=== PATIENT | female | born 1960 | race Caucasian/White ===

== ENCOUNTER 2019-04-02 11:30 | Emergency (ER) | payer MEDICAID, SELFPAY ==
[2019-04-02 11:33] VITALS: BP 143/78; PULSE 77; RESP 16; TEMP 36.9; O2SAT 93; BMI 24.5
--- NOTE | 2019-04-02 11:41 | ED_ITS ---
Entered by Giovany Dhillon, acting as scribe for Eran Rapp DO HPI - Chest Pain General: Chief Complaint: Chest Pain Stated Complaint: RAPID HEART RATE Time Seen by Provider: 04/02/19 11:34 History of Present Illness: HPI narrative: 59 yo female presents with chest pain. Pt states that she is supposed to take her heart rate before she takes her heart medication. Pt states that her pain is now gone. EMS found the patient to be in SVT she has had this in the past as well she was given a single dose of adenosine converted to a normal sinus rhythm she is not having any further symptoms at this time. She has prescription for verapamil and atenolol she is has 180 mg tablets of verapamil will delay been taking 90 and only be taking a half of a 25 mg of atenolol but she checks her pulse in the morning and if it is in the 70s she does not take it. She is worried she will get too bradycardic. She did see her high school professional earlier this week and they advised her to continue to do that since she is not had any breakthrough episodes for some time now. MD complaint: chest pain Onset (ago): day(s) Timing of current episode: constant Prior episodes: Yes Onset: during rest Pain radiation: none Severity: moderate Quality: tightness Exacerbating factors: nothing Associated symptoms: Deny abdominal pain, dyspnea, fever(s), nausea, pal pitations, syncope or vomiting Treatment prior to arrival: aspirin Review of Systems Const: Denies: fever, chills, body aches, fatigue, malaise or night sweats Eyes: Denies: change in vision or blurry vision ENMT: Denies: throat pain, oral sores/lesions, dental pain, nasal discharge or nasal congestion Card: Denies: chest pain, palpitations, irregular heart rhythm, edema, syncope, shortness of breath on exertion, shortness of breath when lying down or leg pain with exertion Resp: Denies: shortness of breath, productive cough, non-productive cough or wheezing GI: Denies: abdominal pain, nausea, vomiting, vomiting blood, coffee grounds in vomit, difficulty swallowing, heartburn/indigestion, diarrhea, constipation, cramping, blood in stool or black tarry stool : Denies: flank pain, painful urination, urinary frequency, urinary urgency, urinary incontinence or blood in urine Musc: Denies: neck pain, back pain, extremity pain, extremity swelling, joint pain or joint swelling Skin/Breast: Denies: rash, itching or redness Neuro: Denies: headache, numbness in extremities, weakness in extremities, changes in sensation, lack of coordination, difficulty walking, frequent falls, dizziness, vertigo or confusion Psych: Denies: anxiety, depression, loss of interest, visual hallucinations, auditory hallucinations, suicidal ideation or homicidal ideation Endo: Denies: excessive urination, excessive thirst, tired all the time or cold intolerance Indra/Lymph: Denies: easy bruising, easy bleeding, petechiae, enlarged lymph nodes or tender lymph nodes PFSH ED PFSH: Statuses (acute, chronic, etc) shown below reflect problem list status as previously entered and may not be historically accurate Medical History Asthma (Acute) Chest pain (Acute) Dyslipidemia (Acute) Dysphagia (Acute) GERD (gastroesophageal reflux disease) (Acute) H. pylori infection (Acute) Hypertension (Acute) Stenosis, cervical spine (Acute) SVT (supraventricular tachycardia) (Acute) Family History Mother Hypertension Other Alzheimer disease CAD (coronary artery disease) Cancer Diabetes Heart disease Stroke Social History Smoking and tobacco status: current every day smoker Alcohol intake: former Physical Exam Const: COMMON NORMALS: average body habitus, oriented x3 and alert GENERAL APPEARANCE: cooperative, comfortable, well kempt and well developed NUTRITIONAL APPEARANCE: not obese ORIENTATION/CONSCIOUSNESS: Yes awake, Yes oriented to person and Yes oriented to place HENMT: COMMON NORMALS: normocephalic, head/scalp atraumatic, EAC's normal, TM's normal bilaterally, external nose normal, moist oral mucous membranes and oropharynx normal HEAD & SCALP: normocephalic and atraumatic NOSE: external nose normal EXTERNAL AUDITORY CANAL: EAC's normal TYMPANIC MEMBRANE: TM's normal bilaterally MOUTH: oral and palatal mucosa normal, lip normal and tongue normal THROAT: posterior oropharynx normal and tonsils normal Eye: COMMON NORMALS: PERRL, EOMs intact bilaterally, conjunctivae normal and no scleral icterus CONJUNCTIVA: Yes conjunctivae normal PUPIL: Yes PERRL Neck/C-Spine: COMMON NORMALS: full ROM, no lymphadenopathy, supple, no meningeal signs and thyroid normal THYROID: thyroid normal and asymmetrical Lymph: LYMPHATIC: no lymphadenopathy noted Resp: COMMON NORMALS: normal respiratory effort, no retractions, no use of accessory muscles and clear to auscultation bilaterally AUSCULTATION: clear to auscultation bilaterally Cardio: COMMON NORMALS: regular rate and regular rhythm RATE: regular rate RHYTHM: regular rhythm HEART SOUNDS: no murmurs GI: COMMON NORMALS: normal to inspection, nondistended, normoactive bowel sounds, soft to palpation and no hepatosplenomegaly PALPATION: Yes soft and Yes no hepatosplenomegaly : COMMON NORMALS: Yes no CVA tenderness BLADDER/KIDNEY EXAM: Yes no CVA tenderness Back/Pelvis: COMMON NORMALS: no CVA tenderness LUMBAR SPINE/LOWER BACK: Yes normal to inspection Extremity: COMMON NORMALS: no clubbing, cyanosis or edema, no calf tenderness and no pedal edema Neuro: COMMON NORMALS: oriented x3 SENSORIUM/ORIENTATION: Yes alert, Yes oriented to person and Yes oriented to place MENINGEAL SIGNS: Yes no meningeal signs Psych: APPEARANCE: Yes well kempt Skin: COMMON NORMALS: no rashes or lesions noted and skin turgor normal GENERAL SKIN EXAM: no rashes or lesions noted and turgor normal Course ED course: Patient asymptomatic upon arrival laboratory tests unremarkable. Working to increase her verapamil 120 mg once a day have her stop taking the 180s, not take a full tablet or half tablet. Instead take the full 120 mg once daily of verapamil. We will have her hold the atenolol follow-up with the doctor next week. She has recurrent symptoms return. Vital Signs: Vital signs: Vital Signs Temperature 98.5 F 04/02/19 11:33 Pulse Rate 70 04/02/19 13:20 Respiratory Rate 15 04/02/19 13:20 Blood Pressure 110/93 04/02/19 13:20 Pulse Oximetry 96 04/02/19 13:20 MDM - Chest Pain Lab Data: Labs: Lab Results 04/02/19 04/02/19 Range/Units 12:07 12:07 WBC 7.4 (4.0-10.0) 10^3/ uL RBC 4.58 (4.1-5.3) 10^6/u L Hgb 14.6 (11.5-15.3) g/dL Hct 42.5 (37.0-47.0) % MCV 92.8 (81-99) fL MCH 31.9 (28.0-34.0) pg MCHC 34.4 (30.0-36.0) g/dL RDW 11.6 L (12.1-15.1) % Plt Count 311 (130-400) 10^3/c mm MPV 9.4 (7.4-10.4) fL Neut % (Auto) 62.2 % Lymph % (Auto) 29.4 % [place] % (Auto) 7.5 % Eos % (Auto) 0.5 % Baso % (Auto) 0.3 % Neut # (Auto) 4.6 (1.8-7.7) 10^3/u L Lymph # (Auto) 2.2 (0.8-4.8) 10^3/u L [place] # (Auto) 0.6 (0.2-0.9) 10^3/u L Eos # (Auto) 0.0 (0.0-0.8) 10^3/u L Baso # (Auto) 0.0 (0.0-0.1) 10^3/u L Nucleated RBC % (a uto) 0 % Nucleated RBCs # 0.0 /100WBC Sodium 139 (136-145) mmol/L Potassium 3.5 (3.5-5.1) mmol/L Chloride 100 (98-107) mmol/L Carbon Dioxide 27 (22-29) mmol/L Anion Gap 15.5 (5-19) BUN 8 (6-20) mg/dL Creatinine 0.9 (0.5-0.9) mg/dL GFR Calculation 64.1 L (90-130) mL/min Glucose 103 (74-109) mg/dL Calcium 10.0 (8.5-10.5) mg/dL Total Bilirubin 0.6 (0.15-1.2) mg/dL AST 21 (0-32) U/L ALT 17 (0-33) U/L Alkaline Phosphata se 106 H (35-105) IU/L Total Protein 8.0 (6.6-8.7) g/dL Albumin 5.1 (3.5-5.2) g/dL Globulin 2.9 (1.3-4.6) g/dL Discharge Plan Discharge Patient Disposition: Home, Self-Care Clinical Impression: SVT (supraventricular tachycardia), Hypertension Condition: Stable Prescriptions: New verapamil 120 mg capsule,ext rel. pellets 24 hr 120 mg PO DAILY Qty: 20 RF: 0 Discontinued verapamil 180 mg Tablet Extended Release 180 mg PO DAILY PRN (Reason: Heart) RF: 0 atenolol 25 mg Tablet 12.5 mg PO DAILY RF: 0 No Action aspirin [Aspir-81] 81 mg tablet,delayed release (DR/EC) 81 mg PO DAILY RF: 0 atorvastatin 20 mg tablet 20 mg PO DAILY RF: 0 ipratropium-albuterol 18-103 mcg/actuation aerosol INHALATION RF: 0 omega-3 fatty acids [Fish Oil Concentrate] 1,000 mg capsule 1,000 mg PO DAILY RF: 0 nitroglycerin 0.4 mg tablet, sublingual 0.4 mg SUBLINGUAL Q5M PRNRF: 0 lactobacillus combination no.8 PO RF: 0 pantoprazole 40 mg tablet,delayed release (DR/EC) 40 mg PO BID RF: 0 Amitiza 24 mcg capsule 24 mcg PO BID MDD 2 30 Days Qty: 60 RF: 4 Discharge Orders: Discharge Order (Routine); Ordered 04/02/19 Ordered By: Eran Rapp Referrals: Viridiana Delgadillo MD [Physician] - (follow up on medication changes) Discharge Date/Time: 04/02/19 13:20 Coding Level of Care Code ED Hand I Blocker for Chg Fwd Exam Problem Focused The documentation recorded by the Alejo morrell Kialy, accurately reflects the service I personally performed and the decisions made by Dionte acosta Curtis L, DO
--- NOTE | 2019-04-02 11:44 | ECG_ITS ---
Measurements Intervals [place] Rate: 77 P: 144 [place]: 157 QRS: 99 QRSD: 85 T: 61 QT: 384 QTc: 435 SINUS RHYTHM ARM LEADS REVERSED [INVERTED P AND QRS IN I] ATYPICAL ECG WARNING: DATA QUALITY MAY AFFECT INTERPRETATION Compared to ECG 09/28/2017 07:27:04 Sinus bradycardia no longer present Electronically Signed On 04-02-2019 18:02:13 WOOD LATHER by Dipti Hernandez M.D. [email or web address]
[2019-04-02 12:12] LABS: Basophils % 0.3 %; Eosinophils % 0.5 %; Hematocrit 42.5 % (37.0-47.0); Hemoglobin 14.6 g/dL (11.5-15.3); Lymphocytes # 2.2 10^3/uL (0.8-4.8); Lymphocytes % 29.4 %; Mean Corpuscular HGB Conc 34.4 g/dL (30.0-36.0); Mean Corpuscular Hemoglobin 31.9 pg (28.0-34.0); Mean Corpuscular Volume 92.8 fL (81-99); Mean Platelet Volume 9.4 fL (7.4-10.4); Monocytes # 0.6 10^3/uL (0.2-0.9); Monocytes % 7.5 %; Neutrophils # 4.6 10^3/uL (1.8-7.7); Neutrophils % 62.2 %; Nucleated Red Blood Cells % 0 %; Platelet Count 311 10^3/cmm (130-400); Red Blood Count 4.58 10^6/uL (4.1-5.3); Red Cell Distribution Width 11.6 % (12.1-15.1); White Blood Count 7.4 10^3/uL (4.0-10.0)
[2019-04-02 12:26] LABS: Alanine Aminotransferase 17 U/L (0-33); Albumin Level 5.1 g/dL (3.5-5.2); Alkaline Phosphatase 106 IU/L (35-105); Anion Gap 15.5 (5-19); Aspartate Amino Transferase 21 U/L (0-32); Blood Urea Nitrogen 8 mg/dL (6-20); Carbon Dioxide 27 mmol/L (22-29); Chloride 100 mmol/L (98-107); Globulin 2.9 g/dL (1.3-4.6); Glomerular Filtration Rate 64.1 mL/min (90-130); Glucose 103 mg/dL (74-109); Potassium 3.5 mmol/L (3.5-5.1); Sodium 139 mmol/L (136-145); Total Bilirubin 0.6 mg/dL (0.15-1.2)
[2019-04-02 13:20] VITALS: BP 110/93; PULSE 70; RESP 15; O2SAT 96
--- NOTE | 2019-04-04 16:04 | DCPLANNER ---
hotel general manager had message to schedule a follow up appointment for patient with [facility]. hotel general manager called [facility], spoke with Teresa, a follow up appointment was scheduled for Thursday, April 06, 2019 at 10:[address] Chance. Clinic will notify patient of appointment.
--- NOTE | 2019-04-07 14:19 | DCPLANNER ---
Patient did attend appointment scheduled for 04.06.19 with [facility].
== END 2019-04-02 13:20 | disposition home or self-care (01) ==
PROVIDERS: Emergency Provider Family Medicine; Family Provider Internal Medicine; PCP Internal Medicine
DX: I47.1 Supraventricular tachycardia (principal); I10 Essential (primary) hypertension; Z79.82 Long term (current) use of aspirin; J45.909 Unspecified asthma, uncomplicated; E78.5 Hyperlipidemia, unspecified; F17.210 Nicotine dependence, cigarettes, uncomplicated; K21.9 Gastro-esophageal reflux disease without esophagitis
CPT/HCPCS: 36415; 80053; 85025; 93005; 99282; A9270

== ENCOUNTER → 2019-04-07 13:44 | Outpatient (BNVA) | payer MEDICAID, SELFPAY | PROVIDERS: Family Provider Internal Medicine; PCP Internal Medicine; Visit Provider Otolaryngology | DX: H93.11 Tinnitus, right ear (principal); F17.210 Nicotine dependence, cigarettes, uncomplicated | CPT/HCPCS: 99203; 99214 ==

== ENCOUNTER 2019-04-21 07:04 | Emergency (ER) | payer MEDICAID, SELFPAY ==
[2019-04-21 07:06] VITALS: BP 132/93; PULSE 70; RESP 20; TEMP 36.9; O2SAT 98; BMI 22.8
--- NOTE | 2019-04-21 07:08 | ED_ITS ---
Entered by Giovany Dhillon, acting as scribe for Eran Rapp DO HPI - General Adult General: Chief complaint: Chest Pain Stated complaint: CHEST PALPITATIONS Time Seen by Provider: 04/21/19 07:15 History of Present Illness: HPI narrative: 59 yo female presents with palpations. Pt states that she woke up at 3 am, went to the bathroom and she could feel her heart beating fast. Pt states that she woke up at 4am, took all of her medications and she could feel her heart beating faster. I had seen her recently here in the emergency room at that time she was only taking her verapamil and her atenolol on a as needed basis she was taking half a tablet of 180 mg of Cardizem and taking atenolol only when her pulse was rapid. We had asked her to take 120 mg daily of Cardizem regularly. She tells me she is continue to do that but is still taking the atenolol just on a as needed basis she is not been back to see cardiology yet. MD complaint: palpatations Associated symptoms: Reports palpitations (Intermittent tachycardias); Deny chest pain, dyspnea, malaise, nausea, rash or vomiting Review of Systems Const: Denies: fever, chills, body aches, change in appetite, fatigue or malaise ENMT: Denies: throat pain, ear pain, nasal discharge or nasal congestion Card: Reports: palpitations (Intermittent tachycardias); Denies: chest pain, edema, shortness of breath on exertion or shortness of breath when lying down Resp: Denies: shortness of breath, productive cough or non-productive cough GI: Denies: abdominal pain, nausea, vomiting, vomiting blood, coffee grounds in vomit, diarrhea, constipation, bloating, blood in stool or black tarry stool : Denies: flank pain, difficulty urinating, painful urination, urinary frequency or urinary urgency Skin/Breast: Denies: rash or itching PFS ED PFSH: Medical History Asthma (Acute) Chest pain (Acute) Dyslipidemia (Acute) Dysphagia (Acute) GERD (gastroesophageal reflux disease) (Acute) H. pylori infection (Acute) Hypertension (Acute) Stenosis, cervical spine (Acute) SVT (supraventricular tachycardia) (Acute) Family History Mother Cancer Diabetes Hypertension Brother CAD (coronary artery disease) Alzheimer disease Heart disease Sister Diabetes Cancer Heart disease Other Stroke Social History Smoking and tobacco status: current every day smoker Quit status (tobacco): considering quitting Alcohol intake: former Physical Exam Const: COMMON NORMALS: no apparent distress GENERAL APPEARANCE: cooperative and comfortable ORIENTATION/CONSCIOUSNESS: Yes awake, Yes oriented to person, Yes oriented to place and Yes oriented to time HENMT: COMMON NORMALS: normocephalic, head/scalp atraumatic, hearing grossly normal bilaterally, external ears normal, EAC's normal, TM's normal bilaterally, nasal mucous membranes and turbinates normal, moist oral mucous membranes and oropharynx normal HEAD & SCALP: normocephalic and atraumatic NOSE: nasal mucous membranes and turbinates normal EXTERNAL EAR: Yes external ears normal EXTERNAL AUDITORY CANAL: EAC's normal TYMPANIC MEMBRANE: TM's normal bilaterally Eye: COMMON NORMALS: PERRL, EOMs intact bilaterally, conjunctivae normal and no scleral icterus CONJUNCTIVA: Yes conjunctivae normal PUPIL: Yes PERRL Neck/C-Spine: COMMON NORMALS: full ROM, no lymphadenopathy, supple and no JVD Lymph: LYMPHATIC: no lymphadenopathy noted and no lymphedema noted Resp: COMMON NORMALS: normal respiratory effort, no retractions, no use of accessory muscles and clear to auscultation bilaterally AUSCULTATION: clear to auscultation bilaterally Cardio: COMMON NORMALS: no JVD, regular rate, regular rhythm and no murmurs RATE: regular rate RHYTHM: regular rhythm GI: COMMON NORMALS: soft to palpation and no hepatosplenomegaly AUSCULTATION: Yes normoactive bowel sounds PALPATION: Yes soft, No tender, No guarding and Yes no hepatosplenomegaly Extremity: COMMON NORMALS: normal to inspection, normal capillary refill, no clubbing, cyanosis or edema, no calf tenderness and no pedal edema Neuro: SENSORIUM/ORIENTATION: Yes oriented to person, Yes oriented to place and Yes oriented to time Skin: COMMON NORMALS: no rashes or lesions noted GENERAL SKIN EXAM: no rashes or lesions noted Course ED course: Continue Cardizem regularly over little bit concerned about the PRN use of the beta-mary do not think she is really using it as a rescue med more if her heart rate is above 70 she will take the night before and at times noticed she gets bradycardic through the night. May be better to have her stop the beta-mary and increase the verapamil further. At this time in the emergency room she tells me she has not taken the atenolol for some time her heart rate is in the 60s and her blood pressure is well controlled recommend not making any changes at this point getting a 24-hour Holter and then follow-up with cardiology they can make adjustments as deemed necessary. I did ask her to continue on her 20 mg daily verapamil for now. Vital Signs: Vital signs: Vital Signs Temperature 98.5 F 04/21/19 07:06 Pulse Rate 67 04/21/19 08:04 Respiratory Rate 20 H 04/21/19 08:04 Blood Pressure 132/93 04/21/19 08:04 Pulse Oximetry 97 04/21/19 08:04 [facility] - General Adult Lab Data: Labs: Lab Results 04/21/19 04/21/19 Range/Units 07:24 07:24 WBC 8.8 (4.0-10.0) 10^3/ uL RBC 4.69 (4.1-5.3) 10^6/u L Hgb 14.8 (11.5-15.3) g/dL Hct 43.3 (37.0-47.0) % MCV 92.3 (81-99) fL MCH 31.6 (28.0-34.0) pg MCHC 34.2 (30.0-36.0) g/dL RDW 11.4 L (12.1-15.1) % Plt Count 331 (130-400) 10^3/c mm MPV 9.3 (7.4-10.4) fL Neut % (Auto) 68.9 % Lymph % (Auto) 23.7 % [place] % (Auto) 6.5 % Eos % (Auto) 0.5 % Baso % (Auto) 0.2 % Neut # (Auto) 6.0 (1.8-7.7) 10^3/u L Lymph # (Auto) 2.1 (0.8-4.8) 10^3/u L [place] # (Auto) 0.6 (0.2-0.9) 10^3/u L Eos # (Auto) 0.0 (0.0-0.8) 10^3/u L Baso # (Auto) 0.0 (0.0-0.1) 10^3/u L Nucleated RBC % (a uto) 0 % Nucleated RBCs # 0.0 /100WBC Sodium 138 (136-145) mmol/L Potassium 3.9 (3.5-5.1) mmol/L Chloride 101 (98-107) mmol/L Carbon Dioxide 25 (22-29) mmol/L Anion Gap 15.9 (5-19) BUN 8 (6-20) mg/dL Creatinine 0.9 (0.5-0.9) mg/dL GFR Calculation 64.1 L (90-130) mL/min Glucose 121 H (65-115) mg/dL Calculated Osmolal ity 283 L (285-295) mOsm/k g Calcium 10.1 (8.5-10.5) mg/dL TSH 1.65 (0.27-4.20) uIU/ mL Free T4 1.60 (0.82-1.77) ng/d L Discharge Plan Discharge Patient Disposition: Home, Self-Care Clinical Impression: SVT (supraventricular tachycardia), Hypertension Condition: Stable Prescriptions: No Action aspirin [Aspir-81] 81 mg tablet,delayed release (DR/EC) 81 mg PO DAILY RF: 0 atorvastatin 20 mg tablet 20 mg PO DAILY RF: 0 ipratropium-albuterol 18-103 mcg/actuation aerosol INHALATION RF: 0 omega-3 fatty acids [Fish Oil Concentrate] 1,000 mg capsule 1,000 mg PO DAILY RF: 0 nitroglycerin 0.4 mg tablet, sublingual 0.4 mg SUBLINGUAL Q5M PRNRF: 0 lactobacillus combination no.8 PO RF: 0 pantoprazole 40 mg tablet,delayed release (DR/EC) 40 mg PO DAILY RF: 0 atenolol 25 mg tablet 25 mg PO QDAY PRNRF: 0 Amitiza 24 mcg capsule 24 mcg PO BID MDD 2 30 Days Qty: 60 RF: 4 verapamil 120 mg capsule,ext rel. pellets 24 hr 120 mg PO DAILY Qty: 20 RF: 0 Discharge Orders: Discharge Order (Routine); Ordered 04/21/19 Ordered By: Eran Rapp Referrals: Viridiana Delgadillo MD [Physician] - (Follow-up with Dr. stinson in the next 7 to 10 days) Activity Restrictions/Additional Instructions: Continue all of your current medications with no change in doses until you follow-up with Dr. Delgadillo Discharge Date/Time: 04/21/19 08:06 Coding Level of Care Code ED [employer] Technician for Chg Fwd Exam Problem Focused The documentation recorded by the Alejo morrell Kialy, accurately reflects the service I personally performed and the decisions made by Dionte acosta Curtis L, DO Apr 21, 2019 07:04
--- NOTE | 2019-04-21 07:16 | ECG_ITS ---
Measurements Intervals [place] Rate: 60 P: 71 SD: 155 QRS: 57 QRSD: 79 T: 46 QT: 406 QTc: 406 SINUS RHYTHM WITH SINUS ARRHYTHMIA Compared to ECG 04/02/2019 11:39:20 No significant changes Electronically Signed On 04-21-2019 20:41:16 WIRE FENCE ERECTOR by Dipti Hernandez M.D. [email or web address]
[2019-04-21 07:30] LABS: Basophils % 0.2 %; Eosinophils % 0.5 %; Hematocrit 43.3 % (37.0-47.0); Hemoglobin 14.8 g/dL (11.5-15.3); Lymphocytes # 2.1 10^3/uL (0.8-4.8); Lymphocytes % 23.7 %; Mean Corpuscular HGB Conc 34.2 g/dL (30.0-36.0); Mean Corpuscular Hemoglobin 31.6 pg (28.0-34.0); Mean Corpuscular Volume 92.3 fL (81-99); Mean Platelet Volume 9.3 fL (7.4-10.4); Monocytes # 0.6 10^3/uL (0.2-0.9); Monocytes % 6.5 %; Neutrophils % 68.9 %; Nucleated Red Blood Cells % 0 %; Platelet Count 331 10^3/cmm (130-400); Red Blood Count 4.69 10^6/uL (4.1-5.3); Red Cell Distribution Width 11.4 % (12.1-15.1); White Blood Count 8.8 10^3/uL (4.0-10.0)
[2019-04-21 07:57] LABS: Anion Gap 15.9 (5-19); Blood Urea Nitrogen 8 mg/dL (6-20); Calcium 10.1 mg/dL (8.5-10.5); Carbon Dioxide 25 mmol/L (22-29); Chloride 101 mmol/L (98-107); Glomerular Filtration Rate 64.1 mL/min (90-130); Glucose 121 mg/dL (65-115); Osmolality Calculated 283 mOsm/kg (285-295); Potassium 3.9 mmol/L (3.5-5.1); Sodium 138 mmol/L (136-145); Thyroid Stimulating Hormone 1.65 uIU/mL (0.27-4.20)
[2019-04-21 08:04] VITALS: BP 132/93; PULSE 67; RESP 20; O2SAT 97
--- NOTE | 2019-04-21 09:20 | DCPLANNER ---
alliance manager had order for a 24 hour halter monitor for patient. alliance manager faxed order to [facility]. alliance manager will call for appointment information.
--- NOTE | 2019-04-22 15:44 | DCPLANNER ---
Patient had an appointment scheduled for a [facility] monitor for 20 - patient attended Patient has an appointment scheduled for Thursday, April 25, 2019 at 8:[address] Delgadillo, clinic will call patient with appointment information.
--- NOTE | 2019-05-10 14:47 | DCPLANNER ---
Patient did attend appointment scheduled for 04.25.19 with [facility].
== END 2019-04-21 08:06 | disposition home or self-care (01) ==
PROVIDERS: Emergency Provider Family Medicine; Family Provider Internal Medicine; PCP Internal Medicine
DX: I47.1 Supraventricular tachycardia (principal); I10 Essential (primary) hypertension; E78.5 Hyperlipidemia, unspecified; J45.909 Unspecified asthma, uncomplicated; F17.200 Nicotine dependence, unspecified, uncomplicated
CPT/HCPCS: 36415; 80048; 84439; 84443; 85025; 93005; 99281; 99283

== ENCOUNTER 2019-11-15 12:25 | Outpatient (CLI) | payer MEDICAID, SELFPAY ==
--- NOTE | 2019-11-15 12:31 | CT_ITS ---
WS: [id number] CT NECK WITH CONTRAST HISTORY: LOCALIZED SWELLING, MASS AND LUMP TECHNIQUE: Contiguous 5 mm axial images are performed through the neck with intravenous contrast. Sag ittal and coronal reformats are also submitted. All CT scans at [facility] use at least o ne of these dose optimization techniques: automated exposure control; mA and/or kV adjustment per pat ient size (includes targeted exams where dose is matched to clinical indication); or iterative recons truction. CONTRAST: CONTRAST: Omnipaque 300; 95 mL IV. DLP: 2701.88 mGycm COMPARISON: None available. Marker is placed over the palpable region in the posterior RIGHT neck. There is a benign appearing oc cipital lymph node measuring 3.5 mm. Otherwise normal appearance of the soft tissues and underlying o sseous structures. Nasopharynx, oropharynx, hypopharynx and larynx are unremarkable. No soft tissue masses or abnormal e nhancement. Torus tubarius and fossa of Rosenmuller and parapharyngeal fat are normal. Small benign cervical chain lymph nodes. There is a fatty nodule measuring 2.5 x 1.8 cm inseparable f rom the inferior pole of the LEFT thyroid gland. Hounsfield units are decreased suggesting fatty atte nuation. This conforms to the adjacent space of the upper neck and extends posterior to the clavicle. Parotid and submandibular glands are negative. Advanced degenerative disc disease at C5-6 and C6-7. Visualized portions of the skull base demonstrate no abnormalities. Orbits and globes are within norm al limits. No soft tissue masses. Visualized paranasal sinuses and mastoid air cells are normal. Lung apices are clear. CT/CT neck w con* 00881 IMPRESSION: 1. Benign occipital lymph node corresponds to the palpable abnormality over th e RIGHT upper cervical region. 2. Soft tissue mass with fat attenuation inseparable from the inferior LEFT th yroid. 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 Benign in appearance without enhancement. Recommend follow-up neck CT in 3 months with contrast to exclude change. 3. No adenopathy.
[2019-11-15] MEDS: iohexol 300 mg/mL 100 mL Btl IV (13:00)
== END 2019-11-15 12:26 | disposition home or self-care (01) ==
LOC: RADWPI 12:27
PROVIDERS: Family Provider Internal Medicine; PCP Internal Medicine; Visit Provider Nurse Practitioner
DX: R22.1 Localized swelling, mass and lump, neck (principal)
CPT/HCPCS: 70491; 99213; Q9967

== ENCOUNTER → 2020-01-13 11:52 | Outpatient (BNVA) | payer MEDICAID, SELFPAY | PROVIDERS: Family Provider Internal Medicine; PCP Internal Medicine; Visit Provider Orthopaedic Surgery | DX: Z11.59 Encounter for screening for other viral diseases (principal); M65.332 Trigger finger, left middle finger | CPT/HCPCS: 87635 ==

== ENCOUNTER → 2020-01-16 13:53 | Outpatient (BNVA) | payer MEDICAID, SELFPAY | PROVIDERS: Family Provider Internal Medicine; PCP Internal Medicine; Referring Provider Internal Medicine; Visit Provider Orthopaedic Surgery | DX: M25.569 Pain in unspecified knee (principal) | CPT/HCPCS: 73560; 73565 ==

== ENCOUNTER 2021-01-14 08:35 | Day surgery (SDC) | payer MEDICAID, SELFPAY ==
[2021-01-11 13:54] VITALS: BMI 27.9
[2021-01-14 08:57] VITALS: BP 131/78; PULSE 71; RESP 18; TEMP 36.7; O2SAT 99
--- NOTE | 2021-01-14 09:00 | ANES.PREANE2 ---
Pre-Anesthetic Assessment Pre-Anesthetic Assessment: Height/Weight: Height 1.68 m Weight 78.471 kg Preop Diagnosis: mass right upper back Proposed Procedure: Operation Date: 01/14/21 08:00 Proposed Procedures p Colonoscopy 69196 Z12.11(Not Applicable) - Eloy Luu MD Operation Date: 01/14/21 09:55 Proposed Procedures p Removal of subcutaneous mass on back under mac 11912 R22.2(Not Applicable) - Jose Mcelroy MD s Colonoscopy 27833 Z12.11(Not Applicable) - Eloy Luu MD Familial anesthetic complications: none Was Beta Susan taken within 24 hours: N/A Was Clonidine taken within 24 hours: N/A Last intake: > 8 hrs Social: Social History: Tobacco and No alcohol Exam: Pre-Anes Outpt Exam: alert, oriented x 3, clear to auscultation bilaterally and regular rate & rhythm Airway: Cervical ROM: WNL MP: 3 Dentition: False Pulmonary: Pulmonary: Asthma CV/HEM: CV/HEM: Arrythmia (SVT s/p ablation), HTN and HI (2010) GI: GI: GERD Metabolic: Metabolic: Hyperlipidemia Anesthetic Plan: ASA status: 3 Anesthesia: MAC Risk of > 500 ml blood loss (7ml/kg in children): No PFSH Anesthesia PFSH: Medical History (Updated 01/01/21 @ 10:48 by Jose Mcelroy MD) Asthma Carpal tunnel syndrome, bilateral Dyslipidemia GERD (gastroesophageal reflux disease) H. pylori infection Hypertension SVT (supraventricular tachycardia) Surgical History (Updated 01/01/21 @ 10:53 by Jose Mcelroy MD) History of cardiac catheterization History of laparoscopy Hx of carpal tunnel repair 08/09/2018 Dr. Gianna Chilel: Open release median nerve at the wrist on the left. 05/24/2018 Dr. Gianna Chilel: Open release the median nerve the wrist on the right. Hx of tonsillectomy Hx of tubal ligation Status post colonoscopy Family History Mother Cancer Diabetes Hypertension Brother CAD (coronary artery disease) Alzheimer disease Heart disease Sister Diabetes Cancer Heart disease Other Stroke Social History Smoking and tobacco status: current every day smoker Quit status (tobacco): considering quitting Alcohol intake: former Household members: spouse Marital status: Current occupational status: retired History of recent travel: No Data Anesthesia Cardiac Studies: Holter Monitor 04/28/19
[2021-01-14] MEDS: sodium chloride 0.9% 1,000 ML 30 ML IV (09:10)
--- NOTE | 2021-01-14 09:14 | W.PM.OPSUD ---
Surgery/Procedure H&P Update DATE OF PROCEDURE: January 14, 2021 DATE H&P PERFORMED: 01/01/21 H&P UPDATE INFORMATION: I have reviewed H&P completed within last 30 days, I have examined patient prior to procedure and No changes to prior documentation PREOP DIAGNOSIS: mass right upper back PLANNED PROCEDURE: Operation Date: 01/14/21 08:00 Proposed Procedures p Colonoscopy 30361 Z12.11(Not Applicable) - Eloy Luu MD Operation Date: 01/14/21 09:55 Proposed Procedures p Removal of subcutaneous mass on back under mac 62935 R22.2(Not Applicable) - Jose Mcelroy MD s Colonoscopy 10048 Z12.11(Not Applicable) - Eloy Luu MD
--- NOTE | 2021-01-14 09:46 | P.HP_ITS ---
Same Day Surgery H&P Indication for Procedure/HPI DATE OF PROCEDURE: January 14, 2021 CHIEF COMPLAINT/INDICATIONFOR SURGICAL PROCEDURE: Screening due to history of colon polyps. PREOP DIAGNOSIS: mass right upper back PLANNED PROCEDRUE: Operation Date: 01/14/21 08:00 Proposed Procedures p Colonoscopy 75965 Z12.11(Not Applicable) - Eloy Luu MD Operation Date: 01/14/21 09:55 Proposed Procedures p Removal of subcutaneous mass on back under mac 92395 R22.2(Not Applicable) - Jose Mcelroy MD s Colonoscopy 28543 Z12.11(Not Applicable) - Eloy Luu MD Medications/Allergies* Home Medications Medication Instructions Recorded Confirmed Type omega-3 fatty acids 1,000 mg 1,000 mg PO DAILY cap 03/20/19 01/11/21 History capsule aspirin 81 mg tablet,delayed 81 mg PO DAILY tab 03/21/19 01/11/21 History release ipratropium bromide 17 2 puff INHALATION Q8H 09/21/19 01/11/21 History mcg/actuation HFA aerosol inhaler atorvastatin 40 mg tablet 40 mg PO DAILY 07/13/20 01/14/21 History baclofen 5 mg PO DAILY 01/11/21 01/14/21 History meloxicam 15 mg PO DAILY 01/11/21 01/14/21 History cholecalciferol (vitamin D3) 50 mcg PO DAILY 01/14/21 01/14/21 History [Vitamin D3] ipratropium bromide 0.5 mg INHALATION Q6H 01/14/21 01/14/21 History Allergies/Adverse Reactions Allergy/AdvReac Type Severity Reaction Status Date / Time codeine Allergy ADR-Itching Verified 01/11/21 13:41 meperidine [From Demerol] Allergy ADR-Itching Verified 01/11/21 13:41 morphine Allergy ADR-Itching Verified 01/11/21 13:41 Penicillins Allergy ALGY-Hives Verified 01/11/21 13:41 Current Medications: Generic Name Dose Route Start Last Admin Trade Name Freq PRN Reason Stop Dose Admin Sodium Chloride 1,000 mls @ 30 mls/hr 01/14/21 08:45 01/14/21 09:10 Sodium Chloride 0.9% IV 01/15/21 08:44 30 mls/hr .Q24H MILO Administration Pertinent History/Comorbid Conditions* Medical History (Updated 01/01/21 @ 10:48 by Jose Mcelroy MD) Asthma Carpal tunnel syndrome, bilateral Dyslipidemia GERD (gastroesophageal reflux disease) H. pylori infection Hypertension SVT (supraventricular tachycardia) Surgical History (Updated 01/14/21 @ 09:44 by Jose Mcelroy MD) H/O excision of mass (01/14/21) right scapula History of cardiac catheterization History of laparoscopy Hx of carpal tunnel repair 08/09/2018 Dr. Gianna Chilel: Open release median nerve at the wrist on the left. 05/24/2018 Dr. Gianna Chilel: Open release the median nerve the wrist on the right. Hx of tonsillectomy Hx of tubal ligation Status post colonoscopy Family History (Updated 04/06/19 @ 09:42 by Morena Martin RN) Diabetes Mother Sister CAD (coronary artery disease) Brother Alzheimer disease Brother Heart disease Brother Sister Cancer Mother Sister Hypertension Mother Stroke Social History Smoking and tobacco status: current every day smoker Quit status (tobacco): considering quitting Alcohol intake: former Household members: spouse Marital status: Current occupational status: retired History of recent travel: No Pertinent Exam Findings alert, oriented x 3, clear to auscultation bilaterally, regular rate & rhythm, operative site marked and procedure specific exam findings Recommendations Surgery/Procedure today Coding Level of Care Code Acute 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
[2021-01-14] MEDS: lidocaine 1% INJ 20 mL XX (10:11)
--- NOTE | 2021-01-14 10:24 | PM.OP ---
Operative Report Date of procedure: January 14, 2021 Pre-op Diagnosis: mass right upper back Post-op Findings: 3 x 3 cm mass right upper back over the scapula consistent with a lipoma Procedure Done: Excision of subcutaneous mass right upper back Specimens removed/disposition: Subcutaneous mass right upper back Surgeon: Jose Mcelroy Anesthesia: MAC Condition: stable Disposition: PACU Procedure: The patient had a colonoscopy performed by Dr. Luu, refer to his notes for details. The area around the mass was prepped and draped in a sterile manner. 1% lidocaine with 0 .5% Marcaine was infiltrated around the palpable mass. Using 15 blade a 4 cm transverse incision was made, subcutaneous tissue and muscular fascia was divided using electrocautery and the lipoma was dissected free from the surrounding subcutaneous tissue and underlying muscle. Hemostasis was ensured with cautery and subcutaneous tissue and the muscular fascia is approximated using a running 3-0 Vicryl suture and skin was closed using running subcuticular 4-0 Monocryl suture and Dermabond. The patient was transferred to recovery room in stable condition.
[2021-01-14 10:33] VITALS: BP 102/73; PULSE 72; RESP 18; TEMP 36.6; O2SAT 99
[2021-01-14 10:35] VITALS: BP 101/73; PULSE 69; RESP 18; TEMP 36.6; O2SAT 98
[2021-01-14 10:44] VITALS: BP 120/75; PULSE 75; RESP 18; TEMP 36.2; O2SAT 100
[2021-01-14 11:02] VITALS: BP 115/73; PULSE 64; RESP 17; O2SAT 100
--- NOTE | 2021-01-14 13:49 | ANE.PACU2 ---
Inpatient post-anesthesia follow up: Airway intact: Yes Vital signs: Temperature 97.2 F Pulse Rate 64 Respiratory Rate 17 Blood Pressure 115/73 Pulse Oximetry 100 Oxygen Delivery Me thod Room Air Oxygen Flow Rate Fraction of Inspir ed Oxygen Hydration adequate: Yes Nausea and vomiting: No Pain level: 1 Mental status: Baseline
== END 2021-01-14 11:15 | disposition home or self-care (01) ==
PROVIDERS: Surgery; PCP Internal Medicine; Visit Provider Internal Medicine
PROC: 0DJD8ZZ Inspection of Lower Intestinal Tract, Via Natural or Artificial Opening Endoscopic (ICD-10-PCS; CPT 45378; 2021-01-14 09:55)
DX: R22.2 Localized swelling, mass and lump, trunk (principal); F17.200 Nicotine dependence, unspecified, uncomplicated; I10 Essential (primary) hypertension; Z88.5 Allergy status to narcotic agent; Z88.0 Allergy status to penicillin; Z79.82 Long term (current) use of aspirin; Z82.49 Family history of ischemic heart disease and other diseases of the circulatory system
CPT/HCPCS: 11043; 88304; J2250; J2704; J3490; J7030

== ENCOUNTER 2021-04-15 09:51 | Outpatient (CLI) | payer MEDICAID, SELFPAY ==
--- NOTE | 2021-04-15 10:00 | CT_ITS ---
WS: [id number] CT NECK TECHNIQUE: Contrast-enhanced CT of the neck with coronal and sagittal reformatted images. CLINICAL INFORMATION: CERVICALGIA/SWELLING,MASS,LUMP,NECK COMPARISON: November 15, 2019 DLP: 299.[address] scans at [facility] use at least one of these dose optimization techniques: automated e xposure control; mA and/or kV adjustment per patient size (includes targeted exams where dose is matc hed to clinical indication); or iterative reconstruction. FINDINGS: Again seen is the fatty attenuation exophytic lesion along the lower pole of the LEFT thyroid unchang ed in appearance since November 27, 2019. This measures approximately 1.8 x 2.5 cm. Thyroid is other melendez normal in appearance with normal enhancement. Fatty lesion extends into the anterior superior me diastinum unchanged from previous. Slightly lobulated ovoid enhancement along the posterior and inferior RIGHT thyroid may represent sma ll parathyroid adenomas versus lobulated normal thyroid tissue. Recommend correlation with laboratory markers. Parotid glands are normal. Normal submandibular glands. Normal posterior nasopharynx. Normal paraphar yngeal fat. Normal subglottic airway. Carotid bulb calcification. Mastoid air cells and paranasal sin uses are well aerated. No cervical lymphadenopathy. Lung apices are normal. Partially visualized intracranial contents appear normal. Previously described small RIGHT occipital lymph node measuring 4 mm is unchanged. Moderate spondylitic changes cervical spine. Disc osteophyte complexes worse at C5-C7. CT/CT neck w con* [id number] IMPRESSION: 1. Previously described fatty attenuation lesion lower pole LEFT thyroid exten ding into the anterior mediastinum is unchanged measuring 1.7 x 2.5 CM. Differe ntial considerations include adenolipoma or less likely thyroid hamartoma. Gilles mmend continued surveillance with 12 month follow-up contrast enhanced CT neck. 2. Tiny ovoid focus of enhancement along the posterior and inferior RIGHT thyr oid may represent small parathyroid adenomas versus lobulated normal thyroid ti ssue. Recommend correlation with serum calcium levels and parathyroid hormone l evels. 3. No cervical lymphadenopathy. 4. Moderate carotid bulb calcification bilaterally. 5. Paranasal sinuses and mastoid air cells well aerated. 6. Moderate spondylitic changes cervical spine with disc osteophyte complexes at C5-C7.
[2021-04-15] MEDS: iohexol 300 mg/mL 100 mL Btl IV (11:16)
[2021-04-15 11:17] LABS: Blood Urea Nitrogen 10 mg/dL (8-23); Glomerular Filtration Rate 101.6 mL/min (90-130)
== END 2021-04-15 09:52 | disposition home or self-care (01) ==
LOC: RAD 09:52
PROVIDERS: PCP Internal Medicine; Visit Provider Nurse Practitioner
DX: M54.2 Cervicalgia (principal); R22.1 Localized swelling, mass and lump, neck; E07.89 Other specified disorders of thyroid; I65.23 Occlusion and stenosis of bilateral carotid arteries
CPT/HCPCS: 70491; 82565; 84520

== ENCOUNTER → 2021-05-09 10:51 | Outpatient (BNVA) | payer MEDICAID, SELFPAY | PROVIDERS: PCP Nurse Practitioner; Visit Provider Internal Medicine Pulmonary Disease | DX: J44.9 Chronic obstructive pulmonary disease, unspecified (principal); F17.210 Nicotine dependence, cigarettes, uncomplicated; J45.909 Unspecified asthma, uncomplicated | CPT/HCPCS: 99204 ==

== ENCOUNTER 2021-05-15 10:23 | Outpatient (CLI) | payer MEDICAID, SELFPAY ==
[2021-05-15 10:57] LABS: Basophils % 0.4 %; Eosinophils # 0.1 10^3/uL (0.0-0.8); Eosinophils % 1.2 %; Hematocrit 41.7 % (37.0-47.0); Hemoglobin 14.1 g/dL (11.5-15.3); Lymphocytes # 2.3 10^3/uL (0.8-4.8); Lymphocytes % 27.8 %; Mean Corpuscular HGB Conc 33.8 g/dL (30.0-36.0); Mean Corpuscular Hemoglobin 32.1 pg (28.0-34.0); Mean Platelet Volume 9.7 fL (7.4-10.4); Monocytes # 0.6 10^3/uL (0.2-0.9); Neutrophils # 5.19 10^3/uL (1.8-7.7); Neutrophils % 63.5 %; Nucleated Red Blood Cells % 0 %; Platelet Count 294 10^3/cmm (130-400); Red Blood Count 4.39 10^6/uL (4.1-5.3); Red Cell Distribution Width 11.8 % (12.1-15.1); White Blood Count 8.2 10^3/uL (4.0-10.0)
[2021-05-16 15:13] LABS: Alternaria Alternata (M6) Ige <0.10 kU/L; Alternaria Class 0; Bermuda Class 0; Bermuda Grass (G2) Ige <0.10 kU/L; Cat Dander (E1) Ige <0.10 kU/L; Cat Dander Class 0; Common Ragweed (Short) (W1) Ig <0.10 kU/L; D. Farinae Class 0; Dermatophagoides Class 0; Dermatophagoides Farinae (D2) <0.10 kU/L; Dermatophagoides Pteronyssinus <0.10 kU/L; Dog Dander (E5) Ige <0.10 kU/L; Dog Dander Class 0; Elm (T8) Ige <0.10 kU/L; Elm Class 0; English Plantain (W9) Ige <0.10 kU/L; English Plantain Class 0; House Dust (Greer) (H1) Ige <0.10 kU/L; House Dust (Hollister- Stier) <0.10 kU/L; House Dust Class 0; Immunoglobulin E 16 kU/L (<OR=114); Immunoglobulin E 19 kU/L (<OR=114); Johnson Grass (G10) Ige <0.10 kU/L; Johnson Grass Cl 0; June Grass Class 0; June Grass(Kentucky Blue) (G8) <0.10 kU/L; Lamb'S Quarters (Goose Foot) <0.10 kU/L; Lamb'S Quarters Class 0; Maple (Box Elder) (T1) Ige <0.10 kU/L; Maple Class 0; Meadow Fescue (G4) Ige <0.10 kU/L; Meadow Fescue Class 0; Mucor Racemosus Class 0; Oak (T7) Ige <0.10 kU/L; Oak Class 0; Orchard Grass (Cocksfoot) (G3) <0.10 kU/L; Penicillium Class 0; Penicillium Notatum (M1) Ige <0.10 kU/L; Perennial Rye Grass (G5) Ige <0.10 kU/L; Perennial Rye Grass Class 0; Ragweeed Class 0; Rough Marsh Elder (W16) Ige <0.10 kU/L; Rough Marsh Elder Class 0; Sweet Vernal Class 0; Sweet Vernal Grass (G1) Ige <0.10 kU/L; Timothy Grass (G6) Ige <0.10 kU/L; Timothy Grass Class 0
[2021-05-20 18:51] LABS: Aspergillus Fumigatus, Igg Ab, 11.8 mg/L (<=102)
== END 2021-05-15 10:24 | disposition home or self-care (01) ==
LOC: LAB 10:26
PROVIDERS: PCP Nurse Practitioner; Visit Provider Internal Medicine Pulmonary Disease
DX: R06.02 Shortness of breath (principal); J44.9 Chronic obstructive pulmonary disease, unspecified; F17.200 Nicotine dependence, unspecified, uncomplicated
CPT/HCPCS: 82785; 85025; 86003

== ENCOUNTER → 2021-07-30 10:59 | Outpatient (BNVA) | payer MEDICAID, SELFPAY | PROVIDERS: PCP Nurse Practitioner; Visit Provider Specialist | DX: G43.711 Chronic migraine without aura, intractable, with status migrainosus (principal); G24.3 Spasmodic torticollis; M50.90 Cervical disc disorder, unspecified, unspecified cervical region | CPT/HCPCS: 99204 ==

== ENCOUNTER 2021-07-31 | Outpatient (CLI) | payer MEDICAID, SELFPAY | END 2021-07-31 23:59 | disposition home or self-care (01) | LOC: RT 10-07 17:03 | PROVIDERS: PCP Nurse Practitioner; Visit Provider Internal Medicine Pulmonary Disease | DX: J44.9 Chronic obstructive pulmonary disease, unspecified (principal); F17.200 Nicotine dependence, unspecified, uncomplicated | CPT/HCPCS: 94618 ==

== ENCOUNTER 2021-07-31 12:51 | Outpatient (CLI) | payer MEDICAID, SELFPAY ==
--- NOTE | 2021-07-31 13:25 | CT_ITS ---
WS: [id number] LDCT LUNG CANCER SCREENING TECHNIQUE: Noncontrast CT of the chest with coronal and sagittal reformatted images. CLINICAL INFORMATION: annual lung cancer screenin COMPARISON: None. DLP: 84.97 mGy.cm DIvol: Mean CTDIvol: 1.60 (mGy) All CT scans at [facility] use at least one of these dose optimization techniques: automat ed exposure control; mA and/or kV adjustment per patient size (includes targeted exams where dose is matched to clinical indication); or iterative reconstruction. FINDINGS: Both lungs are well aerated. 2 tiny, 1 to 2 mm noncalcified pulmonary nodules in the LEFT and RIGHT u pper lobe. No suspicious pulmonary parenchymal abnormalities. Low-attenuation fatty attenuation exoph ytic nodule along the lower pole of the LEFT thyroid extending into the mediastinum is unchanged sinc e the prior neck CT April 15, 2021. This measures approximately 2.3 x 1.7 cm. Normal caliber thora cic aorta. Calcification. Coronary calcification. No mediastinal or hilar lymphadenopathy. Adrenal glands are normal. Normal noncontrast spleen. Normal GE junction. No axillary lymphadenopathy . CT/CT lung screening [id number] IMPRESSION: LUNG-RADS: 2-Benign Appearance or Behavior FOLLOW UP: 12 Month: Continue annual screening with LDCT
--- NOTE | 2021-07-31 13:33 | PFTS_ITS ---
Date of Study:07/31/21 Date of Dictation: MECHANICS: Forced vital capacity (FVC) is normal. Forced expiratory volume in one second (FEV1) is normal. FEV1/FVC is normal. FLOW VOLUME LOOP: Normal. LUNG VOLUMES: Not measured DIFFUSING CAPACITY FOR CARBON MONOXIDE: Normal. INTERPRETATION: The prebronchodilator spirometry is normal. No postbronchodilator spirometry was performed. Lung volumes are not measured. Gas exchange (DLCO) is normal. MTDD
== END 2021-07-31 12:52 | disposition home or self-care (01) ==
LOC: RAD 12:54
PROVIDERS: PCP Nurse Practitioner; Visit Provider Internal Medicine Pulmonary Disease
DX: Z12.2 Encounter for screening for malignant neoplasm of respiratory organs (principal); F17.200 Nicotine dependence, unspecified, uncomplicated; J44.9 Chronic obstructive pulmonary disease, unspecified
CPT/HCPCS: 71271; 94010; 94729

== ENCOUNTER → 2021-08-22 13:43 | Outpatient (BNVA) | payer MEDICAID, SELFPAY | PROVIDERS: PCP Nurse Practitioner; Visit Provider Specialist | DX: G24.3 Spasmodic torticollis (principal); G43.711 Chronic migraine without aura, intractable, with status migrainosus | CPT/HCPCS: 64616; J0585 ==

== ENCOUNTER 2021-10-24 06:00 | Outpatient (RCR) | payer MEDICAID, SELFPAY | END 2021-11-06 23:59 | disposition home or self-care (01) | LOC: GPT 06:00 | PROVIDERS: PCP Nurse Practitioner; Referring Provider Surgery; Visit Provider Surgery | DX: M54.2 Cervicalgia (principal); M48.02 Spinal stenosis, cervical region; R51.9 Headache, unspecified; M47.812 Spondylosis without myelopathy or radiculopathy, cervical region | CPT/HCPCS: 97032; 97110; 97112; 97140; 97161; 97162 ==

== ENCOUNTER 2021-11-07 06:00 | Outpatient (RCR) | payer MEDICAID, SELFPAY | END 2021-12-06 23:59 | disposition home or self-care (01) | LOC: GPT 06:00 | PROVIDERS: PCP Nurse Practitioner; Visit Provider Surgery | DX: M54.2 Cervicalgia (principal); G44.201 Tension-type headache, unspecified, intractable | CPT/HCPCS: 97110; 97112; 97140; G0283 ==

== ENCOUNTER → 2021-11-14 08:42 | Outpatient (BNVA) | payer MEDICAID, SELFPAY | PROVIDERS: PCP Nurse Practitioner; Visit Provider Specialist | DX: G24.3 Spasmodic torticollis (principal); G43.711 Chronic migraine without aura, intractable, with status migrainosus | CPT/HCPCS: 64616; 99213; 99214; J0585 ==

== ENCOUNTER 2021-11-27 15:00 | Emergency (ER) | payer MEDICAID, SELFPAY | END 2021-11-27 15:38 | disposition left against medical advice (07) | PROVIDERS: Emergency Provider Family Medicine; PCP Nurse Practitioner | DX: Z53.21 Procedure and treatment not carried out due to patient leaving prior to being seen by health care provider (principal) ==

== ENCOUNTER 2021-12-07 06:00 | Outpatient (RCR) | payer MEDICAID, SELFPAY | END 2022-01-06 23:59 | disposition home or self-care (01) | LOC: GPT 06:00 | PROVIDERS: PCP Nurse Practitioner; Visit Provider Surgery | DX: M54.2 Cervicalgia (principal); M48.02 Spinal stenosis, cervical region; R51.9 Headache, unspecified; M47.812 Spondylosis without myelopathy or radiculopathy, cervical region | CPT/HCPCS: 97110; 97140; 97164 ==

== ENCOUNTER → 2021-12-17 14:53 | Outpatient (BNVA) | payer MEDICAID, SELFPAY | PROVIDERS: PCP Nurse Practitioner; Visit Provider Internal Medicine Cardiovascular Disease | DX: R00.2 Palpitations (principal); I47.1 Supraventricular tachycardia; I10 Essential (primary) hypertension; F17.200 Nicotine dependence, unspecified, uncomplicated; R07.9 Chest pain, unspecified | CPT/HCPCS: 99214 ==

== ENCOUNTER → 2022-03-20 10:18 | Outpatient (BNVA) | payer MEDICAID, SELFPAY | PROVIDERS: PCP Nurse Practitioner; Visit Provider Nurse Practitioner Family | DX: I47.1 Supraventricular tachycardia (principal); I49.3 Ventricular premature depolarization; I10 Essential (primary) hypertension; F17.200 Nicotine dependence, unspecified, uncomplicated | CPT/HCPCS: 93005; 99214 ==

== ENCOUNTER → 2022-04-16 13:38 | Outpatient (BNVA) | payer MEDICAID, SELFPAY | PROVIDERS: PCP Nurse Practitioner; Visit Provider Internal Medicine Cardiovascular Disease | DX: I47.1 Supraventricular tachycardia (principal); I10 Essential (primary) hypertension; I49.3 Ventricular premature depolarization; F17.200 Nicotine dependence, unspecified, uncomplicated | CPT/HCPCS: 99204; Q3014 ==

== ENCOUNTER 2022-06-17 14:25 | Outpatient (CLI) | payer MEDICAID, SELFPAY ==
--- NOTE | 2022-06-17 14:45 | MR_ITS ---
WS: [id number] MRI BRAIN WITHOUT CONTRAST HISTORY: STABBING HEADACHE COMPARISON: None available. TECHNIQUE: Diffusion imaging, multiplanar T1, T2 and FLAIR imaging obtained. Normal diffusion imaging. No hemorrhage or infarct. There are a few small scattered T2 and FLAIR sign al hyperintensities in the subcortical white matter. Slightly greater number on the RIGHT. A single w ricardo matter lesion on the LEFT abuts the corpus callosum. No remote or acute infarcts are volume loss. Ventricles and extra-axial spaces are normal. No inferior displacement of cerebellar tonsils. The sella turcica and pituitary gland are unremarkabl e. Dural venous sinuses and [place] of [place] demonstrate no abnormality on this unenhanced studies. Paranasal sinuses: Clear. Mastoid air cells: Normal. Calvarium and scalp: Intact. MR/MR head wo con* [id number] IMPRESSION: 1. No acute infarct or hemorrhage. 2. No prior infarct. 3. Mild subcortical white matter lesions. Bilateral but greater on the RIGHT. These lesions can be seen with small vessel ischemic disease, migraines, hypert ension, diabetes or history of smoking.
== END 2022-06-17 14:26 | disposition home or self-care (01) ==
PROVIDERS: PCP Nurse Practitioner; Visit Provider Nurse Practitioner
DX: G44.89 Other headache syndrome (principal)
CPT/HCPCS: 70551

== ENCOUNTER → 2022-12-16 13:53 | Outpatient (BNVA) | payer MEDICAID, SELFPAY | PROVIDERS: PCP Nurse Practitioner; Visit Provider Internal Medicine Cardiovascular Disease | DX: I47.10 Supraventricular tachycardia, unspecified (principal); I10 Essential (primary) hypertension; I49.3 Ventricular premature depolarization; F17.200 Nicotine dependence, unspecified, uncomplicated | CPT/HCPCS: 99214 ==

== ENCOUNTER → 2023-10-14 08:27 | Outpatient (BNVA) | payer MEDICAID, SELFPAY | PROVIDERS: PCP Nurse Practitioner; Visit Provider Nurse Practitioner | DX: M25.511 Pain in right shoulder (principal); R29.898 Other symptoms and signs involving the musculoskeletal system; G89.29 Other chronic pain | CPT/HCPCS: 73030; 99204 ==

== ENCOUNTER 2023-11-19 07:55 | Outpatient (CLI) | payer MEDICAID, SELFPAY ==
--- NOTE | 2023-11-19 08:00 | MR_ITS ---
WS: [id number] MRI RIGHT SHOULDER HISTORY: right shoulder pain COMPARISON: Shoulder radiographs 10/14/2023 TECHNIQUE: Multiplanar sequences of the shoulder joint are submitted. Quality this examination is compromised by coughing throughout the entire examination. Repeat imaging was attempted. Moderate AC joint hypertrophy. Small amount of fluid in the subdeltoid bursa. Mild subacromial imping ement. No os acromion. Biceps tendon appears to be in the bicipital groove. There is thickening of th e biceps tendon just proximal to the bicipital groove and loss of the normal architecture of the tend on. Mild glenohumeral joint narrowing. Mild supraspinatus muscle atrophy. No tendon tear is identified. A small tear may be obscured with this amount of motion. Loss of the normal architecture of the distal subscapularis tendon. The tendon does not appear to be retracted. There is marked thickening and inc reased soft tissue in the region of the distal subscapularis tendon. This is also the location of the abnormal appearance of the biceps tendon. Middle glenohumeral ligament appears thickened and heterog eneous also. Mild narrowing the coracohumeral interval. Heterogeneous signal in the superior labrum may be degenerative. Tear cannot be confirmed on all sequ ences. MR/MR shoulder RT wo con* [id number] IMPRESSION: 1. Study is compromised by uncontrollable coughing throughout the examination. 2. Abnormal signal in the distal subscapularis tendon and the biceps tendon michel r the coracohumeral interval. Suspect significant tendinopathy. Cannot confirm tear. 3. Very minimal atrophy of the supraspinatus muscle but no tear identified in t he supraspinatus tendon. 4. Moderate AC joint arthritis. 5. Mild subacromial impingement.
== END 2023-11-19 07:56 | disposition home or self-care (01) ==
LOC: RAD 07:56
PROVIDERS: PCP Nurse Practitioner; Visit Provider Nurse Practitioner
DX: M19.011 Primary osteoarthritis, right shoulder (principal); R29.898 Other symptoms and signs involving the musculoskeletal system
CPT/HCPCS: 73221

== ENCOUNTER → 2023-11-30 11:10 | Outpatient (BNVA) | payer MEDICAID, SELFPAY | PROVIDERS: PCP Nurse Practitioner; Visit Provider Nurse Practitioner | DX: M19.011 Primary osteoarthritis, right shoulder (principal); M67.911 Unspecified disorder of synovium and tendon, right shoulder; M75.41 Impingement syndrome of right shoulder | CPT/HCPCS: 99213 ==

== ENCOUNTER → 2023-12-08 13:49 | Outpatient (BNVA) | payer MEDICAID, SELFPAY | PROVIDERS: PCP Nurse Practitioner; Visit Provider Internal Medicine Cardiovascular Disease | DX: I47.10 Supraventricular tachycardia, unspecified (principal); I49.3 Ventricular premature depolarization; I10 Essential (primary) hypertension; E78.5 Hyperlipidemia, unspecified; F17.210 Nicotine dependence, cigarettes, uncomplicated | CPT/HCPCS: 99214 ==

== ENCOUNTER 2023-12-21 17:55 | Emergency (ER) | payer MEDICAID, SELFPAY ==
[2023-12-21 18:04] VITALS: BP 163/77; PULSE 50; RESP 16; TEMP 36.7; O2SAT 100; BMI 27.6
--- NOTE | 2023-12-21 18:10 | ECG_ITS ---
[facility] Test Date: 2023-12-21 Pat Name: Iris Charles Department: Room: Gender: Female Civil Rights Attorney: : 1960 Requested By: Yanet Grewal Order Number: [id number] Barbie MD: Alethea Whitman M.D. Measurements Intervals [place] Rate: 55 P: 75 WA: 170 QRS: 67 QRSD: 89 T: 68 QT: 439 QTc: 422 Interpretive Statements SINUS BRADYCARDIA Compared to ECG 04/21/2019 07:22:51 Sinus rhythm no longer present Sinus arrhythmia no longer present Electronically Signed On 12-23-2023 01:01:59 CDT by Alethea Whitman M.D. [email or web address]
--- NOTE | 2023-12-21 18:10 | XRR_ITS ---
PROCEDURE INFORMATION: Exam: XR Chest Exam date and time: 12/21/2023 6:13 PM Age: 63 years old Clinical indication: Pain; Chest pressure; Additional info: Chest pain TECHNIQUE: Imaging protocol: Radiologic exam of the chest. Views: 1 view. COMPARISON: CT lung screening [id number] 07/31/2021 1:48 PM FINDINGS: Lungs: Unremarkable. No consolidation or mass. Pleural spaces: Unremarkable. No pleural effusion. No pneumothorax. Heart/Mediastinum: Unremarkable. No cardiomegaly. Bones/joints: Unremarkable. XR/XR chest 1V portable [id number] IMPRESSION: No acute findings.
[2023-12-21 18:41] LABS: Basophils % 0.4 %; Eosinophils # 0.2 10^3/uL (0.0-0.8); Eosinophils % 2.1 %; Hematocrit 41.5 % (36-47); Lymphocytes # 2.4 10^3/uL (0.8-4.8); Lymphocytes % 25.9 %; Mean Corpuscular HGB Conc 33.3 g/dL (30-55); Mean Corpuscular Hemoglobin 32.1 pg (27-33); Mean Corpuscular Volume 96.5 fl (85-98); Mean Platelet Volume 9.6 fL (7.4-10.4); Monocytes # 0.7 10^3/uL (0.2-0.9); Monocytes % 7.8 %; Neutrophils # 5.89 10^3/uL (1.8-7.7); Neutrophils % 63.6 %; Nucleated Red Blood Cells % 0 %; Platelet Count 278 10^3/cmm (157-399); Red Cell Distribution Width 12.1 % (12.1-15.1); White Blood Count 9.26 10^3/uL (3.29-11.43)
--- NOTE | 2023-12-21 18:49 | ED_ITS ---
HPI - Chest Pain 2 General: Chief Complaint: Chest Pain Stated Complaint: chest pain Time Seen by Provider: 12/21/23 18:07 History of Present Illness: 63-year-old female with a history of hyp ertension, coronary artery disease and tobacco dependence who presents to the emergency room with chest pain. She had brief episodes of sharp chest pain lasting just a few seconds. She did take a nitroglycerin. When EMS arrived she was chest pain-free and did not want to come to the emergency room but EMS encouraged her to come to the emergency room so she did for rule out. No cough. No shortness of breath. No abdominal pain. No nausea or vomiting Related Data Home Medications Medication Instructions Recorded Confirmed aspirin 81 mg tablet,delayed 81 mg PO DAILY 03/21/19 11/30/23 release (Aspir-) atorvastatin 40 mg tablet 40 mg PO DAILY 07/13/20 11/30/23 fluticasone propionate 50 1 spray intranasal DAILY 12/17/21 11/30/23 mcg/actuation nasal spray,suspension (Flonase Allergy Relief) coenzyme Q10 10 mg capsule (Co 10 mg PO DAILY 03/20/22 11/30/23 Q-10) magnesium oxide 400 mg PO DAILY 04/16/22 11/30/23 potassium citrate 99 mg capsule mg PO 04/16/22 11/30/23 diltiazem HCl 120 mg 120 mg PO DAILY 12/08/23 capsule,extended release 24 hr, controlled (DILT-XR) fluticasone propionate 100 1 inh inhalation BID 12/08/23 mcg/actuation blister powder for inhalation levalbuterol tartrate 45 2 inh inhalation Q6H 12/08/23 mcg/actuation aerosol inhaler (Xopenex HFA) salmon oil-omega-3 fatty acids cap PO 12/08/23 1,000 mg-200 mg capsule Previous Rx's Medication Instructions Recorded pantoprazole 40 mg tablet,delayed 40 mg PO BID #180 tabs 11/18/21 release nitroglycerin 0.4 mg sublingual 0.4 mg sublingual Q5M PRN chest 12/17/21 tablet pain #30 tabs Allergies Allergy/AdvReac Type Severity Reaction Status Date / Time codeine Allergy ADR-Itching Verified 12/08/23 14:05 meperidine [From Demerol] Allergy ADR-Itching Verified 12/08/23 14:05 morphine Allergy ADR-Itching Verified 12/08/23 14:05 Penicillins Allergy ALGY-Hives Verified 12/08/23 14:05 Review of Systems 2 Narrative: Constitutional symptoms: Negative except as documented in HPI. Skin symptoms: Negative except as documented in HPI. Eye symptoms: Negative except as documented in HPI. ENMT symptoms: Negative except as documented in HPI. Respiratory symptoms: Negative except as documented in HPI. Cardiovascular symptoms: Negative except as documented in HPI. Gastrointestinal symptoms: Negative except as documented in HPI. Genitourinary symptoms: Negative except as documented in HPI. Musculoskeletal symptoms: Negative except as documented in HPI. Neurologic symptoms: Negative except as documented in HPI. Psychiatric symptoms: Negative except as documented in HPI. Endocrine symptoms: Negative except as documented in HPI. PFSH ED 2 PFSH: Medical History Tendinopathy of right rotator cuff Acromioclavicular joint arthritis Subacromial impingement of right shoulder Weakness of right shoulder Right shoulder pain Carpal tunnel syndrome, bilateral Hypertension H. pylori infection GERD (gastroesophageal reflux disease) Dyslipidemia SVT (supraventricular tachycardia) Asthma Surgical History History of esophagogastroduodenoscopy 2019 H/O excision of mass (01/14/21) right scapula Status post colonoscopy (~01/2021) History of cardiac catheterization Hx of tubal ligation Hx of tonsillectomy History of laparoscopy Hx of carpal tunnel repair 08/09/2018 Dr. Gianna Chilel: Open release median nerve at the wrist on the left. 05/24/2018 Dr. Gianna Chilel: Open release the median nerve the wrist on the right. Family History Mother Cancer Diabetes Hypertension Brother CAD (coronary artery disease) Alzheimer disease Heart disease Sister Diabetes Cancer Heart disease Other Stroke Social History Smoking and tobacco/nicotine status: current every day tobacco/nicotine user Quit status (tobacco/nicotine): considering quitting Alcohol intake: former Substance/Drug Use: never Household members: spouse Marital status: Current occupational status: retired Physical Exam 2 Narrative: EXAM NARRATIVE: General: Alert, no acute distress. Skin: Warm, dry. Head: Normocephalic, atraumatic. Neck: Supple, trachea midline. Eye: Extraocular movements are intact. Ears, nose, mouth and throat: mucosa moist. Cardiovascular: Regular, Normal peripheral perfusion. Respiratory: Lungs are clear to auscultation, respirations are non-labored, breath sounds are equal, Symmetrical chest wall expansion. Gastrointestinal: Soft, Nontender, Non distended Musculoskeletal: Normal ROM, no deformity. Neurological: Alert and oriented, No focal neurological deficit observed. Psychiatric: Cooperative, appropriate mood & affect. Course 2 Vital Signs: Vital signs: Vital Signs Temperature 98.1 F 12/21/23 18:04 Pulse Rate 50 L 12/21/23 20:00 Respiratory Rate 18 12/21/23 20:00 Blood Pressure 129/68 12/21/23 20:00 Pulse Oximetry 99 12/21/23 20:00 Oxygen Delivery Me thod Room Air 12/21/23 20:00 MDM - Chest Pain Medical Decision Making Differential diagnosis for patient with chest pain includes but is not limited to and based on the above HPI, review of systems and physical exam: Pneumonia. unstable angina. angina. Acute coronary syndrome / [place]. Pulmonary embolism. Costochondritis / musculoskeletal. Pleurisy. Pericarditis. Esophageal spasm. Pancreatis. Cholecystitis. Orders placed to evaluate differential diagnosis based on the above differential, HPI and physical exam EKG: Time 175. Rate 55. Sinus bradycardia, No ST-T changes, no ectopy, normal MS & QRS intervals, This was reviewed and interpreted by myself the ER physician At 1800. Repeat EKG: Time 2025. Rate 47. Sinus bradycardia, No ST-T changes, no ectopy, normal MS & QRS intervals, This was reviewed and interpreted by myself the ER physician at 2030. Chest x-ray: No acute process. No infiltrate. No pneumothorax. This was reviewed and interpreted by myself the ER physician. Lab Review: Laboratory results were reviewed and interpreted by myself the emergency room physician. No leukocytosis. White count is 9. Hemoglobin is normal at 13.8. BUN/creatinine are normal at 13 and 0.9. Serial cardiac markers are negative. I reviewed the patient's medical record. Reexamination: Patient remained stable. No increased work of breathing. No altered mental status. No focal motor deficits. Assessment and plan: Noncardiac chest pain - Discharged home - Discussed findings and plan with patient. Answered any questions. - All laboratory values were reviewed and interpreted personally by myself, the ER physician - All imaging was reviewed and interpreted personally by myself, the ER physician. - Evaluation and treatment of this problem were appropriate in the emergency setting Lab Data 12/21/23 18:35 12/21/23 18:35 Radiology Impressions Chest X-Ray 12/21/23 18:10 IMPRESSION: No acute findings. Laboratory Results WBC 9.26 10^3/uL (3.29-11.43) 12/21/23 18:35 RBC 4.30 10^6/uL (3.85-5.65) 12/21/23 18:35 Hgb 13.80 g/dL (11.27-16.99) 12/21/23 18:35 Hct 41.5 % (36-47) 12/21/23 18:35 MCV 96.5 fl (85-98) 12/21/23 18:35 MCH 32.1 pg (27-33) 12/21/23 18:35 MCHC 33.3 g/dL (30-55) 12/21/23 18:35 RDW 12.1 % (12.1-15.1) 12/21/23 18:35 Plt Count 278 10^3/cmm (157-399) 12/21/23 18:35 MPV 9.6 fL (7.4-10.4) 12/21/23 18:35 Neut % (Auto) 63.6 % 12/21/23 18:35 Lymph % (Auto) 25.9 % 12/21/23 18:35 [place] % (Auto) 7.8 % 12/21/23 18:35 Eos % (Auto) 2.1 % 12/21/23 18:35 Baso % (Auto) 0.4 % 12/21/23 18:35 Neut # (Auto) 5.89 10^3/uL (1.8-7.7) 12/21/23 18:35 Lymph # (Auto) 2.4 10^3/uL (0.8-4.8) 12/21/23 18:35 [place] # (Auto) 0.7 10^3/uL (0.2-0.9) 12/21/23 18:35 Eos # (Auto) 0.2 10^3/uL (0.0-0.8) 12/21/23 18:35 Baso # (Auto) 0.0 10^3/uL (0.0-0.1) 12/21/23 18:35 Nucleated RBC % (auto) 0 % 12/21/23 18:35 Nucleated RBCs # 0.0 /100WBC 12/21/23 18:35 Sodium 135 mmol/L (136-145) L 12/21/23 18:35 Potassium 4.1 mmol/L (3.5-5.1) 12/21/23 18:35 Chloride 99 mmol/L (98-107) 12/21/23 18:35 Carbon Dioxide 27 mmol/L (22-29) 12/21/23 18:35 Anion Gap 13.1 (5-19) 12/21/23 18:35 BUN 13 mg/dL (8-23) 12/21/23 18:35 Creatinine 0.9 mg/dL (0.5-0.9) 12/21/23 18:35 GFR Calculation 63.2 mL/min (90-130) L 12/21/23 18:35 Glucose 111 mg/dL (65-115) 12/21/23 18:35 Calculated Osmolality 281 mOsm/kg (285-295) L 12/21/23 18:35 Calcium 8.9 mg/dL (8.5-10.5) 12/21/23 18:35 Total Bilirubin 0.2 mg/dL (0.15-1.2) 12/21/23 18:35 AST 14 U/L (0-32) 12/21/23 18:35 ALT 12 U/L (0-33) 12/21/23 18:35 Alkaline Phosphatase 113 U/L (35-105) H 12/21/23 18:35 Troponin T Baseline 7 ng/L (0-10) 12/21/23 18:35 Troponin T 120 Minute 6.00 ng/L (0-10) 12/21/23 20:25 Delta Troponin T -1.00 ABS# (0-10) L 12/21/23 20:25 Total Protein 6.8 g/dL (6.6-8.7) 12/21/23 18:35 Albumin 4.7 g/dL (3.5-5.2) 12/21/23 18:35 Globulin 2.1 g/dL (1.3-4.6) 12/21/23 18:35 All radiology interpretation(s) finalized by discharge Discharge Plan Discharge Patient Disposition: Home Clinical Impression: Non-cardiac chest pain Condition: Stable Prescriptions: No Action aspirin [Aspir-81] 81 mg tablet,delayed release (DR/EC) 81 mg PO DAILY atorvastatin 40 mg tablet 40 mg PO DAILY fluticasone propionate [Flonase Allergy Relief] 50 mcg/actuation spray,suspension 1 spray intranasal DAILY Rx Instructions: administer into each nostril nitroglycerin 0.4 mg tablet, sublingual 0.4 mg sublingual Q5M PRN (Reason: chest pain) Qty: 30 6RF Rx Instructions: do not exceed 3 doses per episode fluticasone propionate 100 mcg/actuation blister with device 1 inh inhalation BID diltiazem HCl [DILT-XR] 120 mg capsule,ext.rel 24h degradable 120 mg PO DAILY levalbuterol tartrate [Xopenex HFA] 45 mcg/actuation HFA aerosol inhaler 2 inh inhalation Q6H salmon oil-omega-3 fatty acids 1,000-200 mg capsule PO coenzyme Q10 [Co Q-10] 10 mg capsule 10 mg PO DAILY magnesium oxide 400 mg magnesium capsule 400 mg PO DAILY potassium citrate 99 mg capsule PO pantoprazole 40 mg tablet,delayed release (DR/EC) 40 mg PO BID Qty: 180 3RF Discharge Orders: Discharge ED (Routine); Ordered 12/21/23 Ordered By: Yante Lyons Referrals: Ronn Alexis, [employer] [Primary Care Provider] - Discharge Diet: Usual diet Discharge Activity: Increase activity as tolerated Patient Instructions: Noncardiac Chest Pain (ED) Activity Restrictions/Additional Instructions: Thank you for choosing [facility] for your healthcare needs today. Please realize this is an emergency room and that we are providing you with a medical screening exam and this may not be complete and all inclusive of all the testing and or work up that you may need to determine your ailment or severity of your illness. You have been screened and evaluated and felt safe for discharge. Health conditions do change or evolve sometimes and as such it is important that you follow up with your Primary Doctor to be re checked, 3-5 days is a general good time frame for follow up. You are always welcome to return to the ED for re assessment if your symptoms are worsening or you have new concerns Coding Level of Care Code ED Wheel [employer] Clerk for Richar Tellez
[2023-12-21 18:57] VITALS: BP 133/76; PULSE 50; RESP 16; O2SAT 100
[2023-12-21 18:58] LABS: Troponin(5th) Baseline 7 ng/L (0-10)
[2023-12-21 19:15] LABS: Alanine Aminotransferase 12 U/L (0-33); Albumin Level 4.7 g/dL (3.5-5.2); Alkaline Phosphatase 113 U/L (35-105); Anion Gap 13.1 (5-19); Aspartate Amino Transferase 14 U/L (0-32); Blood Urea Nitrogen 13 mg/dL (8-23); Calcium 8.9 mg/dL (8.5-10.5); Carbon Dioxide 27 mmol/L (22-29); Chloride 99 mmol/L (98-107); Creatinine Clr Calc Pharmacy 67.2737; Globulin 2.1 g/dL (1.3-4.6); Glomerular Filtration Rate 63.2 mL/min (90-130); Glucose 111 mg/dL (65-115); Osmolality Calculated 281 mOsm/kg (285-295); Potassium 4.1 mmol/L (3.5-5.1); Sodium 135 mmol/L (136-145); Total Bilirubin 0.2 mg/dL (0.15-1.2); Total Protein 6.8 g/dL (6.6-8.7)
[2023-12-21 19:36] VITALS: BP 115/62; PULSE 47; RESP 15; O2SAT 99
[2023-12-21 20:00] VITALS: BP 129/68; PULSE 50; RESP 18; O2SAT 99
--- NOTE | 2023-12-21 20:10 | ECG_ITS ---
[facility] Test Date: 2023-12-21 Pat Name: Iris Charles Department: Room: Gender: Female Hide Grader: : 1960 Requested By: Yanet Grewal Order Number: [id number] Barbie MD: Alethea Whitman M.D. Measurements Intervals [place] Rate: 47 P: 64 [place]: 163 QRS: 58 QRSD: 92 T: 52 QT: 481 QTc: 428 Interpretive Statements SINUS BRADYCARDIA Compared to ECG 12/21/2023 17:55:49 No significant changes Electronically Signed On 12-23-2023 16:54:50 CDT by Alethea Whitman M.D. [email or web address]
[2023-12-21 21:07] VITALS: BP 135/63; PULSE 45; RESP 15; O2SAT 98
== END 2023-12-21 21:17 | disposition home or self-care (01) ==
PROVIDERS: Emergency Provider Emergency Medicine; PCP Nurse Practitioner
DX: R07.89 Other chest pain (principal); Z79.82 Long term (current) use of aspirin; R00.1 Bradycardia, unspecified; Z72.0 Tobacco use; I10 Essential (primary) hypertension; E78.5 Hyperlipidemia, unspecified
CPT/HCPCS: 36415; 71045; 80053; 84484; 85025; 93005; 99285

== ENCOUNTER → 2024-01-04 13:39 | Outpatient (BNVA) | payer MEDICAID, SELFPAY | PROVIDERS: PCP Nurse Practitioner; Visit Provider Nurse Practitioner Family | DX: I47.10 Supraventricular tachycardia, unspecified (principal); I10 Essential (primary) hypertension; F17.210 Nicotine dependence, cigarettes, uncomplicated | CPT/HCPCS: 99214 ==

== ENCOUNTER 2024-01-21 09:11 | Outpatient (CLI) | payer MEDICAID, SELFPAY ==
--- NOTE | 2024-01-21 09:15 | USCV_ITS ---
Iris Charles Age: 63 Gender: F : 1960 Exam Date: 01/21/2024 09:27 Ordering Phys: Alethea Whitman MD ([email or web address]) Technologist: CT Exam Location: [facility] [place] Indication: htn BP: 144 / 80 HR: 51 Rhythm: Sinus Technical Quality: Adequate MEASUREMENTS (Male / Female) Normal Values 2D ECHO LVOT Diameter 2.0 cm LV Ejection Fraction MOD 4C 66.7 % LV Ejection Fraction MOD 2C 70.8 % LV Ejection Fraction 2C AL 71.3 % LA Diameter 3.1 cm RA Systolic Volume 4C AL 22.8 ml RA Systolic Volume 4C MOD 23.1 ml LA Sys Volume AL 33.4 cm cubed LA Sys Volume Index AL 17.1 cm cubed/m squared Aorta at Sinotubular Diameter 2.4 cm IVC Diameter 1.8 cm M-MODE LA Ao Ratio MM 1.3 AV Cusp Separation MM 1.8 cm DOPPLER AV Peak Velocity 141.0 cm/s LVOT Peak Velocity 111.0 cm/s AV Area Cont Eq vti 2.5 cm squared AV Area Cont Eq pk 2.5 cm squared MV Peak Velocity 213.0 cm/s MV Area PHT 3.4 cm squared Mitral E to A Ratio 1.4 TR Peak Velocity 242.0 cm/s TR Peak Gradient 23.4 mmHg TV Peak E Velocity 81.0 cm/s Right Atrial Pressure 3.0 mmHg Pulmonary Artery Systolic Pressu 26.4 mmHg PV Peak Velocity 85.5 cm/s FINDINGS Left Ventricle Normal left ventricular size and systolic function, EF 67%. No regional wall motion abnormalities. Right Ventricle The right ventricle is normal in size and function. Right Atrium The right atrium is normal in size. Left Atrium The left atrium is normal in size. Mitral Valve Trace mitral valve regurgitation. Aortic Valve No gross abnormalities noted . Tricuspid Valve Trace tricuspid valve regurgitation. Estimated pulmonary artery peak systolic pressure 26 mmHg Pulmonic Valve No gross abnormalities noted Pericardium Normal pericardium without effusion. Aorta Normal ascending aorta dimension. IVC The inferior vena cava appears normal. CONCLUSIONS Normal left ventricular size and systolic function, EF 67%. No regional wall motion abnormalities. Normal cardiac chamber sizes. Trace of mitral and tricuspid regurgitation There is no pericardial effusion. There are no intracardiac masses. Compared to the study from 09/11/2016, there may not be a significant change Dr Alethea Whitman MD [facility] (Electronically Signed) Final Date: 29 January 2024 08:55 S
== END 2024-01-21 09:12 | disposition home or self-care (01) ==
LOC: RAD 09:11
PROVIDERS: PCP Nurse Practitioner; Visit Provider Internal Medicine Cardiovascular Disease
DX: I10 Essential (primary) hypertension (principal); E78.5 Hyperlipidemia, unspecified; I47.10 Supraventricular tachycardia, unspecified
CPT/HCPCS: 93306

== ENCOUNTER → 2024-05-30 15:04 | Outpatient (BNVA) | payer MEDICAID, SELFPAY | PROVIDERS: PCP Nurse Practitioner; Visit Provider Internal Medicine Cardiovascular Disease | DX: I47.10 Supraventricular tachycardia, unspecified (principal); R63.5 Abnormal weight gain; I49.3 Ventricular premature depolarization; I10 Essential (primary) hypertension; E78.5 Hyperlipidemia, unspecified | CPT/HCPCS: 99214 ==

== ENCOUNTER 2024-06-17 08:22 | Outpatient (CLI) | payer MEDICAID, SELFPAY ==
[2024-06-17 09:14] LABS: Thyroid Stimulating Hormone 1.46 uIU/mL (0.27-4.20)
== END 2024-06-17 08:23 | disposition home or self-care (01) ==
PROVIDERS: PCP Nurse Practitioner; Visit Provider Internal Medicine Cardiovascular Disease
DX: N18.9 Chronic kidney disease, unspecified (principal)
CPT/HCPCS: 84443

== ENCOUNTER → 2024-12-05 14:51 | Outpatient (BNVA) | payer MEDICAID, SELFPAY | PROVIDERS: PCP Nurse Practitioner; Visit Provider Nurse Practitioner | DX: M17.11 Unilateral primary osteoarthritis, right knee (principal); Z46.89 Encounter for fitting and adjustment of other specified devices | CPT/HCPCS: 20610; 73560; 73565; 99214; J1100; J2795; J3301; J9999 ==

== ENCOUNTER → 2025-01-24 10:05 | Outpatient (BNVA) | payer MEDICAID, SELFPAY | PROVIDERS: PCP Nurse Practitioner; Visit Provider Nurse Practitioner Family | DX: I47.10 Supraventricular tachycardia, unspecified (principal); M62.89 Other specified disorders of muscle; I87.2 Venous insufficiency (chronic) (peripheral); E78.5 Hyperlipidemia, unspecified; F17.200 Nicotine dependence, unspecified, uncomplicated; I10 Essential (primary) hypertension | CPT/HCPCS: 36415; 80053; 82550; 99214 ==